=== PATIENT | female | born 1995 ===

== ENCOUNTER 2020-03-28 14:55 | Emergency (ER) | payer SELFPAY ==
[~2020-03-28] VITALS: Ht 160 cm; Wt 49.9 kg
[2020-03-28] MEDS ORDERED: IBUPROFEN600 MG PO (15:57)
== END 2020-03-28 17:37 | disposition home or self-care (01) ==
LOC: ED 14:55
DX: S27.321A Contusion of lung, unilateral, initial encounter (principal); W01.0XXA Fall on same level from slipping, tripping and stumbling without subsequent striking against object, initial encounter; Y93.89 Activity, other specified; Y92.89 Other specified places as the place of occurrence of the external cause; Y99.8 Other external cause status